=== PATIENT | female | born 1995 | race Two or more races ===

== ENCOUNTER 2023-08-22 06:37 | Emergency (ER) | payer BC ==
[~2023-08-22] VITALS: Ht 172.7 cm; Wt 84.1 kg
[2023-08-22] MEDS ORDERED: ACET500T58 PO (07:23)
[2023-08-22 07:44] VITALS: BP 120/74; PULSE 125; RESP 20; O2SAT 99
[2023-08-22 08:13] VITALS: TEMP 98.2
[2023-08-22] MEDS: ACETAMINOPHEN 325 MG TAB PO ONE (08:13)
== END 2023-08-22 08:17 | disposition home or self-care (01) ==
LOC: ER 06:37
DX: S16.1XXA Strain of muscle, fascia and tendon at neck level, initial encounter (principal); S00.03XA Contusion of scalp, initial encounter; S00.33XA Contusion of nose, initial encounter; J45.909 Unspecified asthma, uncomplicated; F15.90 Other stimulant use, unspecified, uncomplicated; Z98.890 Other specified postprocedural states; Z79.899 Other long term (current) drug therapy; Y04.2XXA Assault by strike against or bumped into by another person, initial encounter; Y93.89 Activity, other specified; Y92.89 Other specified places as the place of occurrence of the external cause; Y99.8 Other external cause status
CPT/HCPCS: 70450; 70486